=== PATIENT | female | born 1955 ===

== ENCOUNTER 2016-07-09 07:05 | Inpatient (IN) | payer OTHER ==
--- NOTE | 2016-07-08 17:06 | Pre-Procedure Note/Attestation ---
Pre-Procedure Note/Attestation Complete Prior to Procedure Planned Procedure: left Procedure Narrative: Left total knee arthroplasty Indications for Procedure Pre-Operative Diagnosis: Left knee arthritis Attestation I attest that I discussed the nature of the procedure; its benefits; risks and complications; and alternatives (and the risks and benefits of such alternatives ), prior to the procedure, with the patient (or the patient's legal transportation services representative). I attest that, if there was a reasonable possibility of needing a blood transfusion, the patient (or the patient's legal transportation services representative) was given the [facility] standardized written summary, pursuant to the [place] Blood Safety Act ([place] Health and Safety Code # 1645, as amended). I attest that I re-evaluated the patient just prior to the surgery and that there has been no change in the patient's H&P, except as documented below:NONE LALO ALVARADO Jul 08, 2016 17:06
[~2016-07-09] VITALS: Ht 154.9 cm; Wt 65.8 kg
[2016-07-09] VITALS (11 sets, daily range): BP systolic 104–128; BP diastolic 66–86
[~2016-07-09 07:05] MED LIST: IBUPROFEN600 MG ORAL; KLONOPIN0.5 MG ORAL; NORCO1 EA ORAL; ceFAZolin 1gm/50ml Premix 50 ML IV ONE; celeBREX 200mg Cap **SURGERY PATIENTS ONLY ORAL ONE; oxyCONTIN 20mg tab ORAL ONE
[2016-07-09] MEDS ORDERED: celeBREX 200mg Cap **SURGERY PATIENTS ONLY ORAL ONE (07:09)
[2016-07-09] MEDS ORDERED: Bacitracin 50000 Units Vial ONE (07:11)
[2016-07-09] MEDS ORDERED: Morphine Sulfate PF 10 ML ONE (07:21)
[2016-07-09] MEDS ORDERED: Bupivacaine 0.5% Inj 30 ml vial INJ ONE (07:21)
[2016-07-09] MEDS ORDERED: ASPIR 8181 MG ORAL (07:58)
[2016-07-09] MEDS ORDERED: JANUMET 50-1,01 EACH ORAL (07:58)
[2016-07-09] MEDS ORDERED: ATORVAS (07:58)
[2016-07-09] MEDS ORDERED: GABAPENTIN300 MG ORAL (07:58)
[2016-07-09] MEDS ORDERED: METOPROLOL SUCC50 MG ORAL (07:58)
[2016-07-09] MEDS ORDERED: FARXIGA10 MG PO (07:58)
[2016-07-09] MEDS ORDERED: ACTOS15 MG ORAL (07:58)
[2016-07-09] MEDS ORDERED: SIMVASTATIN10 MG ORAL (07:58)
[2016-07-09] MEDS ORDERED: fentaNYL 100 mcg/2 mL IV ONE (08:00)
[2016-07-09] MEDS ORDERED: Propofol 10mg/ml 20ml IV ONE (08:00)
[2016-07-09] MEDS ORDERED: Lidocaine 1% MPF 10mg/ml 5ml ONE (08:00)
[2016-07-09] MEDS ORDERED: NS Irrig 1000ml ONE (08:00)
[2016-07-09] MEDS ORDERED: NS Irrig 2000ml IRRIG ONE (08:00)
[2016-07-09] MEDS ORDERED: Sterile Water Irrig 1000ml IRRIG ONE (08:00)
[2016-07-09] MEDS ORDERED: Midazolam 2mg/2ml Inj ONE (08:00)
[2016-07-09] MEDS ORDERED: LR 1000ml ONE (08:00)
[2016-07-09] MEDS ORDERED: TEMAZEPAM15 MG ORAL (08:02)
[2016-07-09] MEDS ORDERED: OMEPRAZOLE20 M2 ORAL (08:02)
[2016-07-09] MEDS ORDERED: LANTUS SOL100 UNIT/1 SUBQ (08:02)
[2016-07-09] MEDS ORDERED: AMLODIPINE BESY10 MG ORAL (08:02)
[2016-07-09] MEDS ORDERED: DIOVAN160 MG ORAL (08:02)
[2016-07-09] MEDS ORDERED: LR 1000ml 1,000 ML IVLG SCH (08:47)
[2016-07-09] MEDS ORDERED: Norco 5mg/325mg tab ORAL PRN ×2 (09:00→12:30)
[2016-07-09] MEDS ORDERED: Ketorolac 30mg Inj IV PRN (09:00)
[2016-07-09] MEDS ORDERED: Midazolam 2mg/2ml Inj IVP PRN (09:00)
[2016-07-09] MEDS ORDERED: Ketorolac 60mg Inj IV PRN (09:00)
[2016-07-09] MEDS: Docusate 100mg cap ORAL SCH ×3 (09:00→17:09)
[2016-07-09] MEDS ORDERED: Norco 7.5mg/325mg tab ORAL PRN (09:00)
[2016-07-09] MEDS ORDERED: Hydromorphone 0.5mg/0.5ml inj IVP PRN (09:00)
[2016-07-09] MEDS ORDERED: Oxycodone/Acetaminophen 5-325 ORAL PRN (09:00)
[2016-07-09] MEDS ORDERED: DiphenhydrAMINE 50mg/ml Inj IVP PRN (09:00)
[2016-07-09] MEDS ORDERED: Meperidine 25mg/ml Inj IV PRN (09:00)
[2016-07-09] MEDS ORDERED: Labetalol 5mg/ml 20ml vial IV PRN (09:00)
[2016-07-09] MEDS ORDERED: LORazepam Inj 2mg/ml 1ml IV PRN (09:00)
[2016-07-09] MEDS ORDERED: fentaNYL 100 mcg/2 mL IV PRN (09:00)
[2016-07-09] MEDS: celeBREX 200mg Cap **SURGERY PATIENTS ONLY ORAL SCH (09:00)
[2016-07-09] MEDS ORDERED: Atropine Inj 1mg/10ml Syr IV PRN (09:00)
[2016-07-09] MEDS ORDERED: Metoclopramide 10mg/2ml Inj IVP PRN (09:00)
--- NOTE | 2016-07-09 09:01 | Anethesia Preoperative Eval ---
Anesthesia Pre-op PMH/ROS General Date of Evaluation: Jul 09, 2016 Time of Evaluation: 08:01 Anesthesiologist: Lola ASA Score: ASA 3 Mallampati Score Class I : Soft palate, uvula, fauces, pillars visible Class II: Soft palate, uvula, fauces visible Class III: Soft palate, base of uvula visible Class IV: Only hard plate visible Mallampati Classification: Class II Surgeon: Richa Diagnosis: L Knee Pain Surgical Procedure: L Total Knee Arthroplasty Anesthesia History: none Family History: no anesthesia problems Allergies: Coded Allergies: IODINE (Verified Allergy, Unknown, 07/05/16) Medications: see eMAR Past Medical History Cardiovascular: Reports: HTN, other - HL Gastrointestinal/Genitourinary: Reports: GERD Neurologic/Psychiatric: Reports: depression/anxiety Endocrine: Reports: DM HEENT: Reports: cataract (R) Other: other - Overweight PSxH Narrative: Cat IOL OD Anesthesia Pre-op Phys. Exam Physician Exam Last Vital Signs Date Time Temp Pulse Resp B/P Pulse Ox O2 Delivery O2 Flow Rate FiO2 07/09/16 07:38 97.8 81 20 120/78 99 Room Air Constitutional: NAD Neurologic: CN 2-12 intact Cardiovascular: RRR Respiratory: CTA Gastrointestinal: S/NT/ND Airway Exam Mallampati Score: Class II MO: limited ROM: limited Teeth: intact Anesthesia Pre-op A/P Risk Assessment & Plan Assessment: ASA 3 Plan: GA, Spinal, L Adductor Block Status Change Before Surgery: No Pre-Antibiotics Dru Grams Ancef IV Given Within 1 Hr of Incision: Yes Time Given: 08:16 Dariusz Davila MD Jul 09, 2016 09:01
--- NOTE | 2016-07-09 09:02 | Immediate Post-Op Evaluation ---
Immediate Post-Op Evalulation Immediate Post-Op Evalulation Procedure: L Knee Total Arthroplasty Date of Evaluation: Jul 09, 2016 Time of Evaluation: 10:45 IV Fluids: 1000 LR Blood Products: 0 Estimated Blood Loss: 50 Urinary Output: 150 Blood Pressure Systolic: 136 Blood Pressure Diastolic: 90 Pulse Rate: 105 Respiratory Rate: 16 O2 Sat by Pulse Oximetry: 100 Temperature (Fahrenheit): 97.2 Pain Score (1-10): 0 Nausea: No Vomiting: No Complications 0 Patient Status: awake, reacts, patent, extubated, none Hydration Status: adequate Dru Grams Ancef IV Given Within 1 Hr of Incision: Yes Time Given: 08:16 Dariusz Davila MD Jul 09, 2016 09:02
--- NOTE | 2016-07-09 10:27 | Brief Operative Note ---
Immediate Post Operative Note Operative Note Chief Complaint: left knee pain Pre-op Diagnosis: left knee arthritis Procedure: left TKA Post-op Diagnosis: same as pre-op Findings: consistent w/pre-op dx studies Surgeon: md meme Case Hardener: keerthi pinzon Anesthesiologist: md omer Anesthesia: general Specimen: yes Complications: none Condition: stable Estimated Blood Loss: minimal Drains: none Implant(s) used?: Yes - jacobo and nephew JAMISON PINZON Jul 09, 2016 10:27
[2016-07-09] MEDS ORDERED: Milk of Magnesia 30ml Ud ORAL PRN (12:30)
[2016-07-09] MEDS: HYDROmorphone 1mg/ml Carpuject SUBQ PRN (14:05)
--- NOTE | 2016-07-09 16:01 | Diagnostic Imaging Report ---
Indication: Pain 2 views of the left knee were obtained. Findings: There is a left total knee prosthetic. Soft tissue air and swelling noted indicative of recent surgery. Alignment and position of the prosthetic is satisfactory. Impression: Status post left total knee arthroplasty
[2016-07-09] MEDS ORDERED: clonazePAM 0.5mg tab ORAL PRN (16:15)
[2016-07-09] MEDS: DiphenhydrAMINE 50mg/ml Inj IVP PRN (16:22)
[2016-07-09] MEDS: ceFAZolin sod 1 GM in D5W 55 ML IV SCH (16:31)
[2016-07-09] MEDS: D5 1/2NS w/KCl 20mEq 1,000 ML IV SCH (16:31)
[2016-07-09] MEDS: oxyCONTIN 20mg tab ORAL SCH (21:47)
--- NOTE | 2016-07-09 22:37 | Operative Note - Dictated ---
DATE OF OPERATION: 07/09/2016 PREOPERATIVE DIAGNOSIS: Left knee end-stage arthritis. POSTOPERATIVE DIAGNOSIS: Left knee end-stage arthritis. PROCEDURE: Left total knee arthroplasty using [employer] system, size 3 femur, size 3 tibia, size 29 mm polyethylene patellar component, and a size 11 mm tibial polyethylene insert, all cemented. SURGEON: Samson Chaudhry M.D. SUPERINTENDENT GENERAL: Jillian Castaneda PA-C. ANESTHESIOLOGIST: Dariusz Davila M.D. ANESTHESIA: Spinal anesthesia combined with nerve block for postoperative pain management. EBL: 150 mL. Preoperative antibiotics given by the anesthesiologist prior to incision. Tourniquet time 66 minutes. COMPLICATIONS: None. BRIEF HISTORY: The patient is a pleasant 61-year-old female who presents with complaint of left-sided knee pain. She was treated nonoperatively and failed. After full discussion of the risks and benefits of the surgery and complications associated with including infection, bleeding, neurovascular complication, possible pulmonary emboli, possibility of DVT, possibility of wound infection, possibility need for resection arthroplasty as a result infection, need for revision surgery, loss of motion, stiffness, pain despite surgery and all other complications that may be unforeseen, she opted for surgical treatment as described above. OPERATIVE PROCEDURE: The patient was brought to the operating room table and was placed supine. All pressure points well padded. Spinal anesthesia was induced. The left knee was prepped and draped in the usual sterile fashion. The left leg was exsanguinated. The tourniquet was inflated to 275 mmHg. Prior to inflating the incision, preoperative antibiotics was given. Then, a time-out was performed. A standard incision was made over the left knee over the anterior aspect of the knee. The incision was taken through the subcutaneous tissue and medial parapatellar arthrotomy was performed. The patella was everted. The medial release was performed. The knee was bent and anterior cruciate ligament and posterior cruciate ligament releases were performed. At this point, a distal femoral cut was performed without any complication in 5 degrees of valgus. Distal femoral cutting guide was applied and size 3 appeared to be the right size. This was placed in about 3 degrees external rotation and posterior, anterior, and chamfer cuts were performed without any complication. At this point, the box cut was performed slightly lateralizing the femur. This provided the excellent fit. The femoral component was then trialed and appeared to be perfect size and location and good stability. Therefore, care was given to the tibial site. The anterior crest of the tibia was marked. The anatomical axis was recreated and using the extramedullary guide, 2 mm was taken off the most involved side, which was the medial side. The slope was recreated. This provided minimal cut of the tibia. The varus valgus alignment was checked and rechecked and anatomical axis was recreated. Once this was recreated, the sizing was performed and size 3 tibia appeared to be right size. This was placed in slight external rotation and was stabilized with two pins. The femoral component trial was applied and the tibial polyethylene trial inserts were applied and an 11 size was excellent. The knee was placed through full extension and full flexion and there was excellent stability at 0, 30 degrees, 45 degrees, and 90 degrees. Patellofemoral tracking was excellent. At this point, the patella was everted and care was given to the patella. The patella was measured, this was very small, this was at 12 mm patella. A minimal cut of the patella was performed and 11 mm of patella was remaining. At this point, trialing was performed and 29 mm patella appeared to be right size and the peg holes were drilled and trial 49 mm patella was applied. The previous patellar components were in place and at this point, all components were placed through range of motion, stability checked and tracking checked and there was excellent tracking of the patellofemoral joint and excellent stability of the tibiofemoral component and patellar component as well as excellent range of motion. At this point, all trial components were removed and the knee was irrigated using copious amount of fluid. The site of intramedullary access into the femur for intramedullary guide was packed with bone graft. The cement was mixed and the femoral component, tibial component, and patellar components were all cemented without any complication. All excess cement was removed. At this point, trialing was performed and size 11 mm polyethylene appeared to be right size. At this point, the tibial tray was cleared and the 11 mm polyethylene was locked in without any complication. At this point, the knee was then placed through full extension and full flexion and the patellofemoral tracking was checked. Patellofemoral tracking was excellent. Range of motion was excellent. Stability at 0, 30 degrees, 45 degrees, and 90 degrees was checked and they were excellent. At this point, all wounds were thoroughly irrigated using copious amount of fluid. The tourniquet was deflated. There was minimal bleeding. At this point, the extensor mechanism was closed using #1 Vicryl suture. Subcutaneous tissue was closed in #2-0 Vicryl suture and skin was closed in #3-0 Monocryl suture and Dermabond was applied. The patient tolerated the procedure well without any complications and was taken to the recovery room in stable condition. Samson Chaudhry M.D. DR: CELSA JOB#: [id number] CC: BANDAR
[2016-07-10] VITALS: BP 97/61
[2016-07-10] MEDS: ceFAZolin sod 1 GM in D5W 55 ML IV SCH (00:14)
[2016-07-10 04:00] VITALS: BP_SYST 116; BP_SYST 89; BP_DIAS 54; BP_DIAS 60
[2016-07-10] MEDS: D5 1/2NS w/KCl 20mEq 1,000 ML IV SCH ×2 (04:48→21:54)
[2016-07-10] MEDS: HYDROmorphone 1mg/ml Carpuject SUBQ PRN (04:58)
[2016-07-10] MEDS: clonazePAM 0.5mg tab ORAL SCH ×4 (06:00→22:12)
[2016-07-10 07:19] LABS: BASOPHILS % (AUTO) 0.5 % (0.0-2.0); EOSINOPHILS % (AUTO) 0.1 % (0.0-3.0); LYMPHOCYTES % (AUTO) 19.6 % (20.0-45.0); MEAN CORPUSCULAR HEMOGLOBIN 26.8 PG (27.0-31.0); MEAN CORPUSCULAR HGB CONC 32.5 G/DL (32.0-36.0); MEAN CORPUSCULAR VOLUME 83 FL (80-99); MEAN PLATELET VOLUME 7.9 FL (6.5-10.1); MONOCYTES % (AUTO) 10.2 % (1.0-10.0); NEUTROPHILS % (AUTO) 69.6 % (45.0-75.0); PLATELET COUNT 163 K/UL (150-450); RED BLOOD COUNT 4.45 M/UL (4.20-5.40); RED CELL DISTRIBUTION WIDTH 13.4 % (11.6-14.8); WHITE BLOOD COUNT 8.5 K/UL (4.8-10.8)
[2016-07-10 08:00] VITALS: BP 96/59
--- NOTE | 2016-07-10 08:08 | Orthopedic Progress Note ---
Orthopedic - Progress Note Subjective Symptoms: improved - just got pain medication, sleeping but arousable Objective Vital Signs Laboratory Tests Test 07/10/16 05:50 White Blood Count 8.5 K/UL (4.8-10.8) Red Blood Count 4.45 M/UL (4.20-5.40) Hemoglobin 11.9 G/DL (12.0-16.0) L Hematocrit 36.7 % (37.0-47.0) L Mean Corpuscular Volume 83 FL (80-99) Mean Corpuscular Hemoglobin 26.8 PG (27.0-31.0) L Mean Corpuscular Hemoglobin Concent 32.5 G/DL (32.0-36.0) Red Cell Distribution Width 13.4 % (11.6-14.8) Platelet Count 163 K/UL (150-450) Mean Platelet Volume 7.9 FL (6.5-10.1) Neutrophils (%) (Auto) 69.6 % (45.0-75.0) Lymphocytes (%) (Auto) 19.6 % (20.0-45.0) L Monocytes (%) (Auto) 10.2 % (1.0-10.0) H Eosinophils (%) (Auto) 0.1 % (0.0-3.0) Basophils (%) (Auto) 0.5 % (0.0-2.0) Last 24 Hour Vital Signs Date Time Temp Pulse Resp B/P Pulse Ox O2 Delivery O2 Flow Rate FiO2 07/10/16 04:00 97.7 84 21 116/60 99 Nasal Cannula 3.0 07/10/16 00:00 97.2 100 21 97/61 95 Nasal Cannula 3.0 07/09/16 20:41 97.9 107 20 109/66 94 Room Air 07/09/16 17:40 97.9 07/09/16 16:36 97.9 107 20 104/71 96 Room Air 07/09/16 12:45 97.2 102 20 111/67 100 Nasal Cannula 3.0 07/09/16 11:18 98.0 99 24 124/69 100 Nasal Cannula 3.0 07/09/16 11:10 99 22 127/76 100 Nasal Cannula 3.0 07/09/16 11:00 98 17 127/79 100 Nasal Cannula 3.0 07/09/16 10:50 98 16 121/79 99 Nasal Cannula 3.0 07/09/16 10:45 100 20 128/67 100 Nasal Cannula 3.0 07/09/16 10:40 101 16 122/86 100 Simple Mask 6.0 07/09/16 10:37 105 16 100 07/09/16 10:34 97.2 99 17 126/81 100 Simple Mask 6.0 I&O Intake and Output 07/09/16 07/10/16 19:00 07:00 Intake Total 1250 ml 690 ml Output Total 625 ml 1830 ml Balance 625 ml -1140 ml Intake Oral 240 ml IV Total 1250 ml 450 ml Output Urine Total 600 ml 1830 ml Estimated Blood Loss 25 ml Wound: clean, dry, intact Drains: none Neuro Status: normal - sens intact, mild weakness on dorsiflexion- possibly due to blocks- will monitor Vascular Status: normal Additional Comments POST Op Xray reviewed Assessment Post-op Diagnosis POD 1 Procedure Performed left TKA Plan Plan: PT, discharge plan - SNF rehab on friday. d/w telephonic case manager JAMISON HEADLEY Jul 10, 2016 08:08
--- NOTE | 2016-07-10 08:43 | 48 Hour Post Anesthesia Eval ---
Post Anesthesia Evaluation Procedure: L Knee Total Arthroplasty Date of Evaluation: Jul 10, 2016 Time of Evaluation: 07:08 Blood Pressure Systolic: 116 0: 62 Pulse Rate: 84 Respiratory Rate: 21 Temperature (Fahrenheit): 97.7 O2 Sat by Pulse Oximetry: 99 Airway: patent Nausea: No Vomiting: No Pain Intensity: 1 Hydration Status: adequate Cardiopulmonary Status: Stable Mental Status/LOC: patient returned to baseline Follow-up Care/Observations: 0 Post-Anesthesia Complications: 0 Follow-up care needed: ready to discharge Dariusz Davila MD Jul 10, 2016 08:43
[2016-07-10] MEDS: oxyCONTIN 20mg tab ORAL SCH ×2 (09:00→21:55)
[2016-07-10] MEDS: Irbesartan 150mg tablet ORAL SCH (09:00)
[2016-07-10] MEDS: Docusate 100mg cap ORAL SCH ×3 (09:00→17:33)
[2016-07-10] MEDS: celeBREX 200mg Cap **SURGERY PATIENTS ONLY ORAL SCH (09:58)
[2016-07-10] MEDS: Enoxaparin 30mg Inj SUBQ SCH ×2 (10:03→22:03)
[2016-07-10] MEDS: FARXIGA 10 MG ORAL SCH (11:41)
[2016-07-10] MEDS: JANUMET ORAL SCH ×2 (11:41→17:33)
[2016-07-10] MEDS: Levemir Flexpen SUBQ SCH (11:50)
[2016-07-10 12:00] VITALS: BP 97/57
--- NOTE | 2016-07-10 15:00 | General Progress Note ---
Assessment/Plan Status Narrative s/p TKR hypertenison diabetes blood sugar ishigh xchange diet to homa prescott clsoley Assessment/Plan accu check sliding scal paincontrol dvt prophyalxis pt ot cpm will give nph 12 unit now and dfollow Subjective Date patient seen: Jul 10, 2016 Time patient seen: 14:58 Constitutional: Reports: no symptoms HEENT: Reports: no symptoms Cardiovascular: Reports: no symptoms Neurologic/Psychiatric: Reports: no symptoms Allergies: Coded Allergies: IODINE (Verified Allergy, Unknown, 07/05/16) Objective Last 24 Hour Vital Signs Date Time Temp Pulse Resp B/P Pulse Ox O2 Delivery O2 Flow Rate FiO2 07/10/16 12:13 97.7 07/10/16 12:00 97.7 95 20 97/57 100 Room Air 07/10/16 09:59 97.7 07/10/16 09:00 96/59 07/10/16 09:00 92 96/59 07/10/16 09:00 92 96/59 07/10/16 08:43 84 21 99 07/10/16 08:00 98.2 92 18 96/59 95 Nasal Cannula 3.0 07/10/16 04:00 97.7 84 21 116/60 99 Nasal Cannula 3.0 07/10/16 00:00 97.2 100 21 97/61 95 Nasal Cannula 3.0 07/09/16 20:41 97.9 107 20 109/66 94 Room Air 07/09/16 16:36 97.9 107 20 104/71 96 Room Air Intake and Output 07/09/16 07/10/16 18:59 06:59 Intake Total 1250 ml 690 ml Output Total 625 ml 1830 ml Balance 625 ml -1140 ml Intake Oral 240 ml IV Total 1250 ml 450 ml Output Urine Total 600 ml 1830 ml Estimated Blood Loss 25 ml Laboratory Tests 07/10/16 05:50: White Blood Count 8.5, Red Blood Count 4.45, Hemoglobin 11.9L, Hematocrit 36.7L , Mean Corpuscular Volume 83, Mean Corpuscular Hemoglobin 26.8L, Mean Corpuscular Hemoglobin Concent 32.5, Red Cell Distribution Width 13.4, Platelet Count 163, Mean Platelet Volume 7.9, Neutrophils (%) (Auto) 69.6, Lymphocytes (% ) (Auto) 19.6L, Monocytes (%) (Auto) 10.2H, Eosinophils (%) (Auto) 0.1, Basophils (%) (Auto) 0.5 Height (Feet): 5 Height (Inches): 1.00 Weight (Pounds): 145 General Appearance: WD/WN EENT: normal ENT inspection Neck: supple Cardiovascular: normal rate, regular rhythm, no JVD Respiratory/Chest: lungs clear Abdomen: soft GLADYS OSMAN Jul 10, 2016 15:00
[2016-07-10] MEDS: DiphenhydrAMINE 50mg/ml Inj IVP PRN (15:10)
[2016-07-10] MEDS ORDERED: Insulin NPH SUBQ ONE (16:00)
[2016-07-10 16:16] VITALS: BP 117/72
[2016-07-10 20:00] VITALS: BP 144/84
[2016-07-11] VITALS: BP 141/80
[2016-07-11] MEDS: Norco 7.5mg/325mg tab ORAL PRN (00:26)
[2016-07-11 04:00] VITALS: BP_SYST 150; BP_SYST 158; BP_DIAS 88
[2016-07-11] MEDS: clonazePAM 0.5mg tab ORAL SCH ×3 (05:49→21:53)
[2016-07-11] MEDS: D5 1/2NS w/KCl 20mEq 1,000 ML IV SCH ×3 (05:50→18:59)
--- NOTE | 2016-07-11 07:48 | Orthopedic Progress Note ---
Orthopedic - Progress Note Subjective Symptoms: c/o post-op knee pain Additional Comments doing well, progressing with PT. Objective Vital Signs Last 24 Hour Vital Signs Date Time Temp Pulse Resp B/P Pulse Ox O2 Delivery O2 Flow Rate FiO2 07/11/16 04:00 97.5 104 18 150/88 95 Nasal Cannula 2.0 07/11/16 00:00 98.4 110 16 141/80 94 Room Air 07/10/16 20:00 97.9 116 19 144/84 90 Room Air 07/10/16 16:16 98.1 119 20 117/72 92 Room Air 07/10/16 12:13 97.7 07/10/16 12:00 97.7 95 20 97/57 100 Room Air 07/10/16 09:59 97.7 07/10/16 09:00 96/59 07/10/16 09:00 92 96/59 07/10/16 09:00 92 96/59 07/10/16 08:43 84 21 99 07/10/16 08:00 98.2 92 18 96/59 95 Nasal Cannula 3.0 I&O Intake and Output 07/10/16 07/11/16 19:00 07:00 Intake Total 1080 ml 1420 ml Output Total 750 ml 3450 ml Balance 330 ml -2030 ml Intake Oral 480 ml 820 ml IV Total 600 ml 600 ml Output Urine Total 750 ml 3450 ml # Bowel Movements 1 Wound: clean, dry Drains: none Neuro Status: normal Vascular Status: normal Assessment Post-op Diagnosis Post op TKA Plan Plan: PT, pain management, discharge plan Additional Comments Continue monitoring labs LALO ALVARADO Jul 11, 2016 07:48
[2016-07-11 08:00] VITALS: BP 132/77
[2016-07-11] MEDS: celeBREX 200mg Cap **SURGERY PATIENTS ONLY ORAL SCH (08:54)
[2016-07-11] MEDS: Irbesartan 150mg tablet ORAL SCH (08:55)
[2016-07-11] MEDS: oxyCONTIN 20mg tab ORAL SCH ×2 (08:55→21:52)
[2016-07-11] MEDS: JANUMET ORAL SCH ×2 (09:00→17:41)
[2016-07-11] MEDS: FARXIGA 10 MG ORAL SCH (09:00)
[2016-07-11] MEDS: Enoxaparin 30mg Inj SUBQ SCH ×2 (09:03→21:55)
[2016-07-11] MEDS: Docusate 100mg cap ORAL SCH ×4 (09:04→17:40)
[2016-07-11 12:00] VITALS: BP 136/78
[2016-07-11] MEDS: Levemir Flexpen SUBQ SCH (12:37)
--- NOTE | 2016-07-11 13:59 | General Progress Note ---
Assessment/Plan Status Narrative s/p tkr diabetes perioperative blood loss Assessment/Plan pt ot dvt prophyalxis blood sugaris better follow blood sugar closley needs to go to ARU vs ECF will need pt JENI ORTIZ Subjective Date patient seen: Jul 11, 2016 Time patient seen: 13:56 Constitutional: Reports: no symptoms HEENT: Reports: no symptoms Cardiovascular: Reports: no symptoms Allergies: Coded Allergies: IODINE (Verified Allergy, Unknown, 07/05/16) Subjective did not tolerate much CPM yesterday has no tbeen on cpm today Objective Last 24 Hour Vital Signs Date Time Temp Pulse Resp B/P Pulse Ox O2 Delivery O2 Flow Rate FiO2 07/11/16 12:00 98.2 102 20 136/78 99 Nasal Cannula 2.0 07/11/16 09:54 98.1 07/11/16 08:55 132/77 07/11/16 08:54 105 132/77 07/11/16 08:53 105 132/77 07/11/16 08:00 98.1 105 20 132/77 100 Nasal Cannula 2.0 07/11/16 04:00 97.5 104 18 150/88 95 Nasal Cannula 2.0 07/11/16 00:00 98.4 110 16 141/80 94 Room Air 07/10/16 20:00 97.9 116 19 144/84 90 Room Air 07/10/16 16:16 98.1 119 20 117/72 92 Room Air Intake and Output 07/10/16 07/11/16 19:00 07:00 Intake Total 1080 ml 1420 ml Output Total 750 ml 3450 ml Balance 330 ml -2030 ml Intake Oral 480 ml 820 ml IV Total 600 ml 600 ml Output Urine Total 750 ml 3450 ml # Bowel Movements 1 Height (Feet): 5 Height (Inches): 1.00 Weight (Pounds): 145 General Appearance: WD/WN Neck: supple Cardiovascular: normal rate, regular rhythm, no JVD Respiratory/Chest: lungs clear Abdomen: soft GLADYS OSMAN Jul 11, 2016 13:59
[2016-07-11 16:00] VITALS: BP 143/92
[2016-07-11] MEDS: HYDROmorphone 1mg/ml Carpuject SUBQ PRN (18:55)
[2016-07-11 19:45] VITALS: BP 140/90
[2016-07-12] MEDS: DiphenhydrAMINE 50mg/ml Inj IVP PRN (01:30)
[2016-07-12 04:00] VITALS: BP 142/86
[2016-07-12] MEDS: Norco 7.5mg/325mg tab ORAL PRN (04:51)
[2016-07-12] MEDS: clonazePAM 0.5mg tab ORAL SCH (05:21)
[2016-07-12 07:15] LABS: BASOPHILS % (AUTO) 0.8 % (0.0-2.0); EOSINOPHILS % (AUTO) 0.9 % (0.0-3.0); MEAN CORPUSCULAR HEMOGLOBIN 27.2 PG (27.0-31.0); MEAN CORPUSCULAR HGB CONC 32.8 G/DL (32.0-36.0); MEAN CORPUSCULAR VOLUME 83 FL (80-99); MEAN PLATELET VOLUME 7.5 FL (6.5-10.1); MONOCYTES % (AUTO) 11.7 % (1.0-10.0); NEUTROPHILS % (AUTO) 62.8 % (45.0-75.0); PLATELET COUNT 193 K/UL (150-450); RED BLOOD COUNT 4.23 M/UL (4.20-5.40); RED CELL DISTRIBUTION WIDTH 13.3 % (11.6-14.8); WHITE BLOOD COUNT 8.7 K/UL (4.8-10.8)
[2016-07-12 08:00] VITALS: BP 111/58
--- NOTE | 2016-07-12 08:18 | Orthopedic Progress Note ---
Orthopedic - Progress Note Subjective Symptoms: improved Objective Vital Signs Laboratory Tests Test 07/12/16 05:20 White Blood Count 8.7 K/UL (4.8-10.8) Red Blood Count 4.23 M/UL (4.20-5.40) Hemoglobin 11.5 G/DL (12.0-16.0) L Hematocrit 35.1 % (37.0-47.0) L Mean Corpuscular Volume 83 FL (80-99) Mean Corpuscular Hemoglobin 27.2 PG (27.0-31.0) Mean Corpuscular Hemoglobin Concent 32.8 G/DL (32.0-36.0) Red Cell Distribution Width 13.3 % (11.6-14.8) Platelet Count 193 K/UL (150-450) Mean Platelet Volume 7.5 FL (6.5-10.1) Neutrophils (%) (Auto) 62.8 % (45.0-75.0) Lymphocytes (%) (Auto) 24.0 % (20.0-45.0) Monocytes (%) (Auto) 11.7 % (1.0-10.0) H Eosinophils (%) (Auto) 0.9 % (0.0-3.0) Basophils (%) (Auto) 0.8 % (0.0-2.0) Last 24 Hour Vital Signs Date Time Temp Pulse Resp B/P Pulse Ox O2 Delivery O2 Flow Rate FiO2 07/12/16 04:00 98.4 131 22 142/86 95 Room Air 07/11/16 19:45 98.8 122 22 140/90 96 Room Air 07/11/16 16:00 99.3 110 20 143/92 99 Room Air 07/11/16 12:00 98.2 102 20 136/78 99 Nasal Cannula 2.0 07/11/16 09:54 98.1 07/11/16 08:55 132/77 07/11/16 08:54 105 132/77 07/11/16 08:53 105 132/77 I&O Intake and Output 07/11/16 07/12/16 19:00 07:00 Intake Total 1702.5 ml 575 ml Output Total 1150 ml Balance 552.5 ml 575 ml Intake Oral 840 ml 200 ml IV Total 862.5 ml 375 ml Output Urine Total 1150 ml # Voids 6 7 Wound: clean, dry, intact Drains: none Neuro Status: normal Vascular Status: normal Assessment Post-op Diagnosis POD 3 Procedure Performed left TKA Plan Plan: discharge plan - d/c to SNF today. dressing change. f/u Dr. Prescott 10-14 days JAMISON HEADLEY Jul 12, 2016 08:18
[2016-07-12] MEDS: D5 1/2NS w/KCl 20mEq 1,000 ML IV SCH (08:40)
[2016-07-12] MEDS: Docusate 100mg cap ORAL SCH ×2 (08:44→13:17)
[2016-07-12] MEDS: Irbesartan 150mg tablet ORAL SCH (08:45)
[2016-07-12] MEDS: celeBREX 200mg Cap **SURGERY PATIENTS ONLY ORAL SCH (08:46)
[2016-07-12] MEDS: Enoxaparin 30mg Inj SUBQ SCH (08:52)
[2016-07-12] MEDS: FARXIGA 10 MG ORAL SCH (09:00)
[2016-07-12] MEDS: JANUMET ORAL SCH (09:00)
--- NOTE | 2016-07-12 09:47 | Discharge Summary ---
DATE OF ADMISSION: 07/09/2016 DATE OF DISCHARGE: 07/12/2016 HOSPITAL COURSE: The patient is a very pleasant, 61-year-old female, who was admitted on 07/09/2016 for left total knee arthroplasty. She was discharged on 07/12/2016 to a rehabilitation center. She had a benign hospital course and was followed along by Dr. Fransisco Sauceda. She is ambulating well and working with physical therapy well. At time of discharge was stable labs, vital signs and good pain control. She is to follow up with our office in two week's time. She can be weightbearing as tolerated. She is to continue with CPM and to continue on Lovenox for full 14 days postop. On date of discharge, the patient was alert and oriented complaining of no knee pain. She was neurovascularly intact, was clean and dry dressing. The patient will be discharged to rehabilitation center today and will follow up as outpatient. Jahaira Ely DR: Chelle JOB#: [id number] CC:
[2016-07-12 12:00] VITALS: BP 104/50
[2016-07-12] MEDS ORDERED: TYLENOL650 MG/20. ORAL (12:34)
[2016-07-12] MEDS ORDERED: CELEBREX200 MG ORAL (12:35)
[2016-07-12] MEDS ORDERED: COLACE100 MG ORAL (12:36)
[2016-07-12] MEDS ORDERED: GABAPENTIN300 MG ORAL (12:37)
[2016-07-12] MEDS ORDERED: LOVENOX10 MG SUBQ (12:37)
[2016-07-12] MEDS ORDERED: FERROUS SULFAT325 MG ORAL (12:37)
[2016-07-12] MEDS ORDERED: AVAPRO150 MG ORAL (12:38)
[2016-07-12] MEDS ORDERED: LEVEMIR FL100 UNIT/1 SUBQ (12:39)
[2016-07-12] MEDS ORDERED: TOPROL XL50 MG ORAL (12:40)
[2016-07-12] MEDS ORDERED: MOM30 ML ORAL (12:41)
[2016-07-12] MEDS ORDERED: NORCO 5-325 TA1 EAC1 ORAL (12:46)
[2016-07-12] MEDS ORDERED: NORCO 7.5/3251 EA ORAL (12:47)
[2016-07-12] MEDS ORDERED: ATORVASTATIN CA10 MG ORAL (12:49)
[2016-07-12] MEDS ORDERED: RESTORIL7.5 MG ORAL (12:50)
[2016-07-12] MEDS ORDERED: HYDROMORPHO2 MG/1 M5 SUBQ (12:59)
[2016-07-12] MEDS ORDERED: HYDROMORPH1 MG/50 ML SUBQ (12:59)
[2016-07-12] MEDS ORDERED: DILAUDID8 MG PO (12:59)
[2016-07-12] MEDS ORDERED: DILAUDID1 MG/1 ML SUBQ (12:59)
[2016-07-12] MEDS: Levemir Flexpen SUBQ SCH (13:26)
--- NOTE | 2016-07-13 17:07 | Diagnostic Imaging Report ---
APPROVED REPORT CPT Code: 61172 Present Symptoms Comments: Left leg pain Post-Op BILATERAL: Imaging reveals a patent deep venous system bilaterally. There is no evidence of thrombus within the femoral, popliteal or tibial segments. The greater saphenous veins are also within normal limits. Doppler indicates normal spontaneous flow within these segments.
== END 2016-07-12 14:18 | disposition short-term general hospital (02) | DRG 470 ==
LOC: SDSOVERFLO 07:05 → 3E 11:55
PROC: 0SRD0J9 Replacement of Left Knee Joint with Synthetic Substitute, Cemented, Open Approach (ICD-10-PCS; principal; 2016-07-09 09:30)
DX: M17.12 Unilateral primary osteoarthritis, left knee (principal); I10 Essential (primary) hypertension; F41.9 Anxiety disorder, unspecified; E11.9 Type 2 diabetes mellitus without complications; Z79.4 Long term (current) use of insulin; Z88.8 Allergy status to other drugs, medicaments and biological substances
CPT/HCPCS: 36415; 82962; 85025; 86850; 86900; 86901; 87081; 93970; 94003; 94150; J2250; J2405; S5561